=== PATIENT | female | born 1965 | race Caucasian/White ===

== ENCOUNTER 2017-11-18 20:58 | Emergency (ER) | payer SELFPAY ==
[~2017-11-18 20:58] MED LIST: IBUP-238 PO; MULTCAP PO
== END 2017-11-18 21:15 | disposition left against medical advice (07) ==
LOC: NED 20:58
DX: Z53.21 Procedure and treatment not carried out due to patient leaving prior to being seen by health care provider (principal)
CPT/HCPCS: 99281